=== PATIENT | female | born 1955 | race Caucasian/White ===

== ENCOUNTER 2019-03-03 06:05 | Day surgery (SDC) | payer BC ==
[~2019-03-03] VITALS: Ht 162.6 cm; Wt 45.8 kg
[~2019-03-03 06:05] MED LIST: ALORA1 EAC1; CALCIUM-FOLIC1 EACH; LISINOPRIL20 MG; NORCO 5-325 TA1 EACH PO; PROGESTERONE200 MG
--- NOTE | 2019-03-03 08:11 | NUR ---
03/03/19 0811 Jessie Mauricio 0805- PT ARRIVES TO PACU ALERT. PT REPORTS NO PAIN OR NAUSEA. RESP EVEN AND UNLABORED. OXYGEN SAT MID TO HIGH 90'S ON RA. PT DROWSY AND FALLS TO SLEEP WHEN NOT BEING TALKED TO.
--- NOTE | 2019-03-03 10:33 | NUR ---
PT ALERT, ORIENTED AND SUPPORTED BY HER . SHE HAS HAD PREVIOUS SCOPE, JUST ROUTINE TODAY. PT SEEMED INFORMED, EXPLAINED PROCESS OF EVENTS FOR THE DAY-PTS' SEEMED RELIEVED. PT REQUESTED PRAYER, WILL FOLLOW NEEDED
--- NOTE | 2019-03-03 14:29 | OR ---
[facility] [address] [place] [address] Signed DATE OF OPERATION: 03/03/2019 SURGEON: Slim Sosa MD PREOPERATIVE DIAGNOSIS: Colon screening (normal colonoscopy in 2007). POSTOPERATIVE DIAGNOSIS: Normal colon to cecum. PROCEDURE PERFORMED: Total colonoscopy to cecum. ANESTHESIA: Intravenous sedation, fentanyl 100 mcg, Versed 7 mg. 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 She has no family history of colon cancer or other problems and is symptom-free. She is here for surveillance colonoscopy. She understands the risks of bleeding, infection, and perforation related to colonoscopy and wished to proceed. FINDINGS: The prep was quite excellent. Complete colonoscopy was undertaken to the cecum without question. There was no evidence of polyps, diverticular formation, colitis, or cancer. The colon was redundant and time to cecum was somewhat lengthy with extra care and caution but was accomplished ultimately safely. DESCRIPTION OF PROCEDURE: The patient was brought to the endoscopy suite and placed in lateral decubitus position, given intravenous sedation to the point of slurred speech and nystagmus with full cardiopulmonary monitoring. Digital rectal examination was normal. An Olympus video colonoscope was passed in the rectum and manipulated throughout the colon. Passage through the sigmoid and left colon was somewhat lengthy on the basis of colon redundancy, but the prep was quite excellent and in due course, the scope passed beyond this area, ultimately to the cecum. The ileocecal valve and appendiceal orifice were normal. Scope was withdrawn from that point and examination undertaken showed no sign of abnormality, specifically no polyps, diverticular formation, colitis, or cancer. Electronically Signed By: SLIM SOSA MD 03/03/19 1429 PATIENT NAME: ELVER DELGADO OPERATIVE REPORT DATE OF : 53 REPORT #: [id number] PHYSICIAN: SLIM SOSA MD PCP: LEW CAMPOVERDE PA-C REPORT IS CONFIDENTIAL AND NOT TO BE RELEASED WITHOUT AUTHORIZATION [facility] [address], [place] [address] Signed Retroflex view of the rectum was normal. The scope was removed. The patient was taken to recovery room in good condition. CONCLUDING DIAGNOSIS: Normal colon. PLAN: Repeat colonoscopy in 10 years sooner if clinically indicated. She will return to the ongoing care of EDITH Luciano, and Dr. Alka John. MD REGAN Pablo/MODL /[id number] cc: EDITH Luciano MD Copies: ALKA JOHN MD ~ Electronically Signed By: SLIM SOSA MD 03/03/19 1429 PATIENT NAME: ELVER DELGADO OPERATIVE REPORT DATE OF : 53 REPORT #: [id number] PHYSICIAN: SLIM SOSA MD PCP: LEW CAMPOVERDE PA-C REPORT IS CONFIDENTIAL AND NOT TO BE RELEASED WITHOUT AUTHORIZATION
== END 2019-03-03 08:45 | disposition home or self-care (01) ==
LOC: OPS 06:05 → DS 06:05 → OPS 06:45
PROVIDERS: Surgery
PROC: 0DJD8ZZ Inspection of Lower Intestinal Tract, Via Natural or Artificial Opening Endoscopic (ICD-10-PCS; principal; 2019-03-03 06:45)
DX: Z12.11 Encounter for screening for malignant neoplasm of colon (principal); K21.9 Gastro-esophageal reflux disease without esophagitis; D50.9 Iron deficiency anemia, unspecified; K21.0 Gastro-esophageal reflux disease with esophagitis; I10 Essential (primary) hypertension; Z87.891 Personal history of nicotine dependence; Z98.890 Other specified postprocedural states
CPT/HCPCS: 99153; G0500; J2250; J3010; J7120